=== PATIENT | male | born 1950 | race Caucasian/White ===

== ENCOUNTER → 2019-07-18 10:04 | Outpatient (CLI) | payer OTHER, SELFPAY ==
--- NOTE | 2019-07-18 | DI.US.S_ITS ---
PROCEDURE: US ABD AORTA ANEURYSM SCREEN INDICATIONS: AAA SCREEN TECHNIQUE: Real time scanning was performed of the aorta and iliac arteries, with image documentation. COMPARISON: None. FINDINGS: Aorta: Proximal aortic diameter measures 2.5 cm. Mid-aorta measures 2.0 cm. Distal aortic diameter is 1.6 cm. Iliac arteries: Right common iliac artery measures 1.1 cm. Left common iliac artery measures 1.1 cm. IMPRESSION: No abdominal aortic or proximal common iliac artery aneurysm. Dictated by: Shahid Acevedo [facility] Interpreted: Bakari Andre MD on 07/18/2019 at 13:26 Approved by: Bakari Andre M.D. on 07/18/2019 at 15:44
== END ==
PROVIDERS: Visit Provider Internal Medicine
DX: Z13.6 Encounter for screening for cardiovascular disorders (principal)
CPT/HCPCS: 76706